=== PATIENT | male | born 1970 | race Two or more races ===

== ENCOUNTER 2024-03-04 22:28 | Inpatient (IN) | payer MEDICAID, OTHER ==
[~2024-03-04] VITALS: Ht 175.3 cm; Wt 111.6 kg
[2024-03-04 22:50] VITALS: PULSE 75; RESP 15; O2SAT 95
[2024-03-04 23:26] LABS: Urine Bacteria None Seen /hpf (None Seen)
[2024-03-04 23:31] LABS: Basophils # (auto) 0.1 10 ^3/uL (0-0.2); Basophils % (auto) 0.6 % (0.0-2.0); Eosinophils # (auto) 0.1 10 ^3/uL (0-0.8); Eosinophils % (auto) 0.5 % (0.0-7.0); Hematocrit 38.4 % (41.0-53.0); Hemoglobin 13.5 g/dL (13.5-17.5); Lymphocytes # (auto) 2.1 10 ^3/uL (0.4-5.4); Lymphocytes % (auto) 14.9 % (10.0-50.0); Mean Corpuscular Hemoglobin 30.9 pg (28.0-32.0); Mean Corpuscular Hgb Conc. 35.2 g/dL (32.0-36.0); Mean Corpuscular Volume 87.7 fL (80.0-100.0); Monocytes # (auto) 1.3 10 ^3/uL (0-1.3); Monocytes % (auto) 9.7 % (0.0-12.0); Neutrophils # (auto) 10.3 10 ^3/uL (1.6-8.6); Neutrophils % (auto) 74.3 % (37.0-80.0); Platelet Count (auto) 323 10^3/uL (140-450); Red Blood Cells 4.38 10^6/uL (4.5-5.90); Red Cell Distribution Width 13.4 % (11.8-14.3); White Blood Cell 13.8 10^3/uL (4.4-10.8)
[2024-03-04 23:34] LABS: Urine Blood 3+ /uL (Negative); Urine Budding Yeast OCCASIONAL /hpf (None Seen); Urine Clarity Clear (Clear); Urine Color Colorless (Yellow); Urine Mucus FEW (None Seen); Urine Protein, UAD TRACE (Negative); Urine Specific Gravity 1.016 (1.001-1.035); Urine Urobilinogen Normal (Negative); Urine WBC 19 /hpf (0 - 3)
[2024-03-04] MEDS: MORPHINE SULFATE 4 MG/ML SYR/VIAL IV ONE (23:42)
[2024-03-04] MEDS: ONDANSETRON HCL 4 MG/2 ML VIAL IV ONE (23:43)
[2024-03-04 23:47] LABS: Alanine Aminotransferase 38 U/L (7-40); Albumin 4.5 g/dL (3.2-4.8); Alkaline Phosphatase 69 U/L (46-116); Anion Gap 8 (5-15); Aspartate Aminotransferase 35 U/L (13-40); BUN/Creatinine Ratio 8.8 (10.0-20.0); Blood Urea Nitrogen 18 mg/dL (9-23); Calcium 9.5 mg/dL (8.7-10.4); Carbon Dioxide 22 mmol/L (20-30); Chloride 105 mmol/L (98-107); Glucose 113 mg/dL (74-106); Potassium 4.1 mmol/L (3.5-5.1); Sodium 135 mmol/L (136-145)
[2024-03-04 23:48] LABS: Bilirubin, Total 1.3 mg/dL (0.2-1.0); Total Protein 7.2 g/dL (5.7-8.2)
[2024-03-05] VITALS (7 sets, daily range): BP systolic 92–205; BP diastolic 54–126; PULSE 70–87; RESP 18–20; TEMP 97.8–100.1; O2SAT 93–100
[2024-03-05] MEDS: cefTRIAXone 1GM/50ML D5W 50 ML IV ONE (00:20)
[2024-03-05] MEDS ORDERED: MORPHINE SULFATE 4 MG/ML SYR/VIAL IV ONE (01:45)
[2024-03-05] MEDS: ONDANSETRON HCL 4 MG/2 ML VIAL IV ONE (01:50)
[2024-03-05] MEDS: HYDROmorphone HCL 2 MG/ML VL/or syr IV ONE (02:01)
[2024-03-05] MEDS ORDERED: DOCUSATE SOD 100 MG CAP PO PRN (03:15)
[2024-03-05] MEDS ORDERED: ACETAMINOPHEN 325 MG TAB PO PRN (03:15)
[2024-03-05] MEDS ORDERED: NITROGLYCERIN 0.4 MG SL TAB SL PRN (03:15)
[2024-03-05] MEDS ORDERED: MORPHINE SULFATE INJ 2 MG/ml SYRG IV PRN (03:15)
[2024-03-05] MEDS ORDERED: ONDANSETRON HCL 4 MG/2 ML VIAL IV PRN (03:15)
[2024-03-05] MEDS: SODIUM CHLORIDE 0.9% 1,000 ML IV SCH (03:41)
[2024-03-05] MEDS: MORPHINE SULFATE INJ 2 MG/ml SYRG IV PRN ×3 (05:00→18:44)
[2024-03-05] MEDS ORDERED: HYDR-4798 PO (06:40)
[2024-03-05] MEDS: ONDANSETRON HCL 4 MG/2 ML VIAL IV PRN (06:56)
[2024-03-05] MEDS: HYDROcodone-ACET 5/325MG TAB PO PRN (08:12)
[2024-03-05 09:18] LABS: Basophils # (auto) 0 10 ^3/uL (0-0.2); Basophils % (auto) 0.2 % (0.0-2.0); Eosinophils # (auto) 0 10 ^3/uL (0-0.8); Eosinophils % (auto) 0.2 % (0.0-7.0); Hematocrit 39.4 % (41.0-53.0); Hemoglobin 13.6 g/dL (13.5-17.5); Lymphocytes # (auto) 1.2 10 ^3/uL (0.4-5.4); Lymphocytes % (auto) 10.7 % (10.0-50.0); Mean Corpuscular Hemoglobin 30.4 pg (28.0-32.0); Mean Corpuscular Hgb Conc. 34.6 g/dL (32.0-36.0); Mean Corpuscular Volume 87.8 fL (80.0-100.0); Monocytes % (auto) 8.4 % (0.0-12.0); Neutrophils # (auto) 9.2 10 ^3/uL (1.6-8.6); Neutrophils % (auto) 80.5 % (37.0-80.0); Platelet Count (auto) 330 10^3/uL (140-450); Red Blood Cells 4.48 10^6/uL (4.5-5.90); Red Cell Distribution Width 13.3 % (11.8-14.3); White Blood Cell 11.4 10^3/uL (4.4-10.8)
[2024-03-05 09:27] LABS: Chloride 103 mmol/L (98-107); Sodium 134 mmol/L (136-145)
[2024-03-05 09:28] LABS: Anion Gap 4 (5-15); Carbon Dioxide 27 mmol/L (20-30)
[2024-03-05 09:29] LABS: Calcium 9.7 mg/dL (8.7-10.4)
[2024-03-05 09:33] LABS: BUN/Creatinine Ratio 8.7 (10.0-20.0); Blood Urea Nitrogen 18 mg/dL (9-23); Glucose 119 mg/dL (74-106)
[2024-03-05] MEDS: DOCUSATE SOD 100 MG CAP PO SCH (10:34)
[2024-03-05] MEDS: FUROSEMIDE 40 MG/4 ML VIAL ONE (12:09)
[2024-03-05] MEDS: FUROSEMIDE 40 MG/4 ML VIAL IV ONE (14:24)
[2024-03-05] MEDS: TAMSULOSIN HYDROCHLORIDE 0.4 MG CAP PO SCH (19:46)
[2024-03-05] MEDS: cefTRIAXone 1GM/50ML D5W 50 ML IV SCH (21:18)
[2024-03-05 23:06] LABS: INR 1.1 (0.9-1.15); Prothrombin Time 11.6 sec (9.3-11.8)
[2024-03-06 01:00] VITALS: BP 104/62; PULSE 75; RESP 18; TEMP 97.9; O2SAT 96
[2024-03-06 09:00] VITALS: BP 116/96; PULSE 78; RESP 20; TEMP 97.5; O2SAT 98
[2024-03-06 11:15] LABS: Basophils # (auto) 0 10 ^3/uL (0-0.2); Basophils % (auto) 0.3 % (0.0-2.0); Eosinophils # (auto) 0.1 10 ^3/uL (0-0.8); Eosinophils % (auto) 0.9 % (0.0-7.0); Hematocrit 38.4 % (41.0-53.0); Hemoglobin 13.4 g/dL (13.5-17.5); Lymphocytes % (auto) 22.8 % (10.0-50.0); Mean Corpuscular Hemoglobin 30.5 pg (28.0-32.0); Mean Corpuscular Hgb Conc. 34.8 g/dL (32.0-36.0); Mean Corpuscular Volume 87.7 fL (80.0-100.0); Monocytes # (auto) 0.8 10 ^3/uL (0-1.3); Neutrophils # (auto) 5.8 10 ^3/uL (1.6-8.6); Platelet Count (auto) 350 10^3/uL (140-450); Red Blood Cells 4.38 10^6/uL (4.5-5.90); Red Cell Distribution Width 13.5 % (11.8-14.3); White Blood Cell 8.7 10^3/uL (4.4-10.8)
[2024-03-06 11:30] LABS: Chloride 103 mmol/L (98-107); Potassium 4.3 mmol/L (3.5-5.1); Sodium 135 mmol/L (136-145)
[2024-03-06 11:31] LABS: Anion Gap 3 (5-15); Calcium 9.1 mg/dL (8.7-10.4); Carbon Dioxide 29 mmol/L (20-30)
[2024-03-06 11:36] LABS: BUN/Creatinine Ratio 8.5 (10.0-20.0); Blood Urea Nitrogen 32 mg/dL (9-23); Glucose 110 mg/dL (74-106)
[2024-03-06 12:35] VITALS: BP 112/67; PULSE 66; RESP 18; TEMP 98.6; O2SAT 96
[2024-03-06 16:55] VITALS: BP 88/51; PULSE 107; RESP 17; TEMP 98.5; O2SAT 92
[2024-03-06 20:00] VITALS: PULSE 102; RESP 18; O2SAT 98
[2024-03-06 21:00] VITALS: BP 104/71; PULSE 102; RESP 18; TEMP 97.9; O2SAT 96
[2024-03-07 01:00] VITALS: BP 106/68; PULSE 88; RESP 17; TEMP 98.1; O2SAT 98
[2024-03-07 05:00] VITALS: BP 143/84; PULSE 68; RESP 17; TEMP 97.9; O2SAT 98
[2024-03-07 07:52] LABS: Basophils # (auto) 0 10 ^3/uL (0-0.2); Basophils % (auto) 0.4 % (0.0-2.0); Eosinophils # (auto) 0.3 10 ^3/uL (0-0.8); Eosinophils % (auto) 3.3 % (0.0-7.0); Hematocrit 36.2 % (41.0-53.0); Hemoglobin 12.4 g/dL (13.5-17.5); Lymphocytes # (auto) 1.5 10 ^3/uL (0.4-5.4); Lymphocytes % (auto) 17.3 % (10.0-50.0); Mean Corpuscular Hemoglobin 30.5 pg (28.0-32.0); Mean Corpuscular Hgb Conc. 34.2 g/dL (32.0-36.0); Mean Corpuscular Volume 89.2 fL (80.0-100.0); Monocytes % (auto) 11.1 % (0.0-12.0); Neutrophils # (auto) 5.9 10 ^3/uL (1.6-8.6); Neutrophils % (auto) 67.9 % (37.0-80.0); Platelet Count (auto) 335 10^3/uL (140-450); Red Blood Cells 4.05 10^6/uL (4.5-5.90); White Blood Cell 8.7 10^3/uL (4.4-10.8)
[2024-03-07 08:01] LABS: Anion Gap 3 (5-15); Carbon Dioxide 27 mmol/L (20-30); Chloride 106 mmol/L (98-107); Potassium 3.9 mmol/L (3.5-5.1); Sodium 136 mmol/L (136-145)
[2024-03-07 08:03] LABS: Calcium 8.8 mg/dL (8.7-10.4)
[2024-03-07 08:07] LABS: Glucose 113 mg/dL (74-106)
[2024-03-07 08:08] LABS: BUN/Creatinine Ratio 11.9 (10.0-20.0); Blood Urea Nitrogen 38 mg/dL (9-23)
[2024-03-07 13:00] VITALS: BP 159/86; PULSE 77; RESP 18; TEMP 99; O2SAT 97
[2024-03-07 17:00] VITALS: BP 92/49; PULSE 70; RESP 18; TEMP 98.3; O2SAT 94
[2024-03-07 20:00] VITALS: PULSE 91; RESP 19; O2SAT 97
[2024-03-07 21:00] VITALS: BP 117/83; PULSE 91; RESP 19; TEMP 98; O2SAT 97
[2024-03-08] VITALS (12 sets, daily range): BP systolic 101–145; BP diastolic 59–80; PULSE 57–91; RESP 18–20; TEMP 98–99; O2SAT 94–100
[2024-03-08 07:02] LABS: Basophils # (auto) 0 10 ^3/uL (0-0.2); Basophils % (auto) 0.5 % (0.0-2.0); Eosinophils # (auto) 0.3 10 ^3/uL (0-0.8); Eosinophils % (auto) 3.5 % (0.0-7.0); Hemoglobin 12.2 g/dL (13.5-17.5); Lymphocytes # (auto) 2.2 10 ^3/uL (0.4-5.4); Lymphocytes % (auto) 25.6 % (10.0-50.0); Mean Corpuscular Hemoglobin 31.1 pg (28.0-32.0); Mean Corpuscular Hgb Conc. 34.8 g/dL (32.0-36.0); Mean Corpuscular Volume 89.5 fL (80.0-100.0); Monocytes # (auto) 0.9 10 ^3/uL (0-1.3); Monocytes % (auto) 10.5 % (0.0-12.0); Neutrophils # (auto) 5.3 10 ^3/uL (1.6-8.6); Neutrophils % (auto) 59.9 % (37.0-80.0); Platelet Count (auto) 346 10^3/uL (140-450); Red Blood Cells 3.92 10^6/uL (4.5-5.90); Red Cell Distribution Width 13.5 % (11.8-14.3); White Blood Cell 8.8 10^3/uL (4.4-10.8)
[2024-03-08 07:09] LABS: Anion Gap 4 (5-15); Carbon Dioxide 26 mmol/L (20-30); Chloride 107 mmol/L (98-107); Potassium 4.7 mmol/L (3.5-5.1); Sodium 137 mmol/L (136-145)
[2024-03-08 07:11] LABS: Calcium 8.9 mg/dL (8.7-10.4)
[2024-03-08 07:15] LABS: BUN/Creatinine Ratio 11.7 (10.0-20.0); Blood Urea Nitrogen 33 mg/dL (9-23); Glucose 111 mg/dL (74-106)
[2024-03-08] MEDS: ALBUTEROL SULF 2.5 MG/0.5ML(0.5%) NEB SOLN NEB PRN (16:50)
[2024-03-09] VITALS (12 sets, daily range): BP systolic 105–183; BP diastolic 60–97; PULSE 67–98; RESP 12–22; TEMP 97.9–98.6; O2SAT 96–100
[2024-03-09 06:58] LABS: Basophils # (auto) 0.1 10 ^3/uL (0-0.2); Basophils % (auto) 0.6 % (0.0-2.0); Eosinophils # (auto) 0.4 10 ^3/uL (0-0.8); Eosinophils % (auto) 4.4 % (0.0-7.0); Hematocrit 33.6 % (41.0-53.0); Hemoglobin 11.9 g/dL (13.5-17.5); Lymphocytes # (auto) 2.1 10 ^3/uL (0.4-5.4); Lymphocytes % (auto) 24.4 % (10.0-50.0); Mean Corpuscular Hemoglobin 31.7 pg (28.0-32.0); Mean Corpuscular Hgb Conc. 35.6 g/dL (32.0-36.0); Mean Corpuscular Volume 89.1 fL (80.0-100.0); Monocytes # (auto) 0.8 10 ^3/uL (0-1.3); Monocytes % (auto) 8.8 % (0.0-12.0); Neutrophils # (auto) 5.3 10 ^3/uL (1.6-8.6); Neutrophils % (auto) 61.8 % (37.0-80.0); Platelet Count (auto) 348 10^3/uL (140-450); Red Blood Cells 3.77 10^6/uL (4.5-5.90); Red Cell Distribution Width 13.2 % (11.8-14.3); White Blood Cell 8.5 10^3/uL (4.4-10.8)
[2024-03-09 07:15] LABS: Chloride 107 mmol/L (98-107); Potassium 4.8 mmol/L (3.5-5.1); Sodium 137 mmol/L (136-145)
[2024-03-09 07:16] LABS: Anion Gap 2 (5-15); Carbon Dioxide 28 mmol/L (20-30)
[2024-03-09 07:17] LABS: Calcium 9.6 mg/dL (8.7-10.4)
[2024-03-09 07:21] LABS: BUN/Creatinine Ratio 12.7 (10.0-20.0); Blood Urea Nitrogen 26 mg/dL (9-23); Glucose 109 mg/dL (74-106)
[2024-03-09] MEDS: MIDAZOLAM HCL 2MG/2ML 2ml VIAL (1mg/ml) ONE (11:12)
[2024-03-09] MEDS: LIDOCAINE 2%HCL (LOCAL ANESTH.) INJ 20ML MDV ONE (11:12)
[2024-03-09] MEDS: fentaNYL CITRATE 100 MCG/2 ML VL ONE (11:12)
[2024-03-09] MEDS: ceFAZolin 1GM/50ML 0 ML IV ONE (11:15)
[2024-03-09] MEDS: hydrALAZINE HCL 20 MG/ML VL ONE ×2 (11:33→12:13)
[2024-03-09] MEDS: cefTRIAXone 1GM/50ML D5W 50 ML IV ONE (11:36)
[2024-03-10] VITALS (9 sets, daily range): BP systolic 104–173; BP diastolic 70–92; PULSE 53–87; RESP 16–19; TEMP 98.4–99; O2SAT 91–99
[2024-03-10] MEDS ORDERED: MORPHINE SULFATE 4 MG/ML SYR/VIAL ONE (05:29)
[2024-03-10] MEDS ORDERED: CEFD300C2 PO (15:24)
[2024-03-10] MEDS ORDERED: TAMS-35 PO (15:24)
== END 2024-03-10 18:40 | disposition home health service (06) | DRG 463 ==
LOC: ER 22:28 → EDBD 22:28 → TELE-WESTW 03-05 03:22 → TELE 03-05 03:22 → ER 03-05 03:22 → TELE-WESTW 03-05 04:20 → WEST WING 03-05 16:35
PROVIDERS: ADMIT Nurse Practitioner Family; ATTEND Internal Medicine
PROC: 0T9430Z Drainage of Left Kidney Pelvis with Drainage Device, Percutaneous Approach (ICD-10-PCS; principal; 2024-03-09)
DX: N13.6 Pyonephrosis (principal); N17.0 Acute kidney failure with tubular necrosis; I10 Essential (primary) hypertension; K59.00 Constipation, unspecified; F17.210 Nicotine dependence, cigarettes, uncomplicated; Z85.51 Personal history of malignant neoplasm of bladder; Z79.899 Other long term (current) drug therapy; Z98.890 Other specified postprocedural states
CPT/HCPCS: 36415; 50432; 74176; 74425; 76775; 76942; 78707; 80048; 80053; 81001; 83605; 85025; 85610; 94640; 96365; 96375; 96376; 99152; G0378; J2250; J2405

== ENCOUNTER 2025-03-01 21:41 | Emergency (ER) | payer MEDICAID ==
[~2025-03-01] VITALS: Ht 182.9 cm; Wt 113.6 kg
[~2025-03-01 21:41] MED LIST: CEFD300C2 PO; HYDR-4798 PO; TAMS-35 PO
[2025-03-01] MEDS ORDERED: CALCIUM CHLOR(10%) 100MG/ML 10ML SYRINGE IV ONE (21:42)
[2025-03-01] MEDS ORDERED: NALOXONE HCL 0.4 MG/ML VIAL ONE (21:51)
[2025-03-01 21:57] VITALS: BP 0/0; PULSE 0; RESP 0; TEMP 99.9; O2SAT 0
--- NOTE | 2025-03-01 22:09 | ED.PDOC ---
CPR-HPI HPI Comments HPI: 54 year old male presents to the emergency department via EMS with a chief compliant of cardiac arrest. Per EMS, patient was found unresponsive on bathroom floor, unknown downtime, last seen well was about 20 minutes prior to downtime. Per EMS, family was concerned for possible overdose unknown white powder was found near the patient. S.O arrived about 4 minutes prior to EMS, compressions began. Patient was given 4 mg Narcan in route to ED as well as five rounds of epi, patient was asystole, pupils were fixed, dilated, IV was placed on RT AC, 500 mL IV fluids given. Upon ED arrival patient's blood sugar was 54, temperature was 99.9F rectal, cyanotic face, pupils, fixed, nonreactive. He was intubated with an 8.0 ETT, 24 cm at the lips. and son state patient was about four months sober, was not feeling well, went to the restroom, when they checked on him he was found on the floor. TOD was called 22:24. TOD was 22:24 Initial Vitals Temp: 99.9 F rectal BS: 54 Past Medical History: bladder cancer, HTN Past Surgical History: Denies Social History: unknown Medications: unknown Allergies: unknown HPI: Poor Historian. REVIEW OF SYSTEMS: Limited given the patient ALOC, unresponsive, CPR in progress. PHYSICAL EXAM: General: -CPR in progress, unresponsive, GCS 3 Patient is cyanotic, pupils are fixed and dilated. No corneal reflex. No gag reflex during intubation. Patient arrives in no C-collar. Head: normocephalic, Neck: supple, trachea is midline, no swelling. Throat: No gag reflex, noted food products in the posterior pharynx during i ntubation with GlideScope. Patient arrived from EMS with an oral adjunct present and bag-valve mask ventilation Eyes:, no erythema, no purulent discharge, no proptosis, no icterus. Pupils are dilated fixed nonreactive to light in her coronary reflex. Heart: Absolutely no cardiac activity. Asystole. Confirmed by both Doppler and bedside ultrasound of cardiac window. Lungs: Patient is not breathing on his own. Abdomen: non distended, soft, Neuro: Unresponsive, cardiac arrest Skin: no petechia, no purpura, non-pale, not jaundice. Patient's face is cyanotic and some mottling throughout the extremities is present. Lower extremities: --no - Pitting edema no deformity, no focal swelling, no calf TTP. Face: no apparent facial droop. ED COURSE: DISCLAIMER: This medical document was created using an electronic medical record system with voice recognition software and computerized dictation system. Although this document has been carefully reviewed, there might still be some phonetic and typographical errors. Occasional wrong-word or "sound-alike" substitutions may have occurred due to the inherent limitations of voice recognition software. These areas are purely typographical due to imperfections of the software programs and do not reflect any compromise in the patient's medical care. Please read the chart carefully and recognize, using context, where these substitutions have occurred. Chief Complaint: CPR Time Seen by MD: 21:42 Allergies: Coded Allergies: NO KNOWN ALLERGIES (Unverified , 03/04/24) Home Meds Active Scripts Tamsulosin Hcl (Flomax) 0.4 Mg Cap, 1 CAP PO DAILY for 14 Days, #14 CAP 11 Refills Prov:AZRA MORSE MD 03/10/24 Cefdinir (Cefdinir) 300 Mg Cap, 1 CAP PO BID for 7 Days, #14 CAP Prov:AZRA MORSE MD 03/10/24 Reported Medications Hydrocodone-Acetaminophen (Hydrocodone Bitartrate/AC 10-325 mg) 1 Tab Tab, 1 TAB PO BID, TAB 03/05/24 Information Source: Relative, Emergency Med Personnel Past Medical History PAST MEDICAL HISTORY: Cancer, HTN Surgical History: Denies all surgeries Family History Family History: Reviewed,noncontributory to illness Social History Smoker: Cigarettes Alcohol: Denies ETOH Use Drugs: Denies Drug Use Was a procedure done? Was a procedure done?: No Intubation Indication: Respiratory Insufficiency Prep: Preoxygenation Intubation Approach: Orotracheal Intubation size: cm (24) Informed consent obtained: Yes Risks/benefits/alt described: Yes Differential Dx CPR Differential Diagnosis: Cardiopulmonary arrest, Cardiac Tamponade, Cardiogenic shock, Dysrhythmia, Electrolyte disorder, Heart Block, Myocardial Infarction, Pneumothorax, Pulmonary Embolus, Respiratory Failure, Ruptured Aortic Aneurysm X-Ray, Labs, Meds, VS Vital Signs Date Time Temp Pulse Resp B/P (MAP) Pulse Ox O2 Delivery O2 Flow Rate FiO2 03/02/25 00:55 0 0 0 Ambu-Bag 0 03/01/25 21:57 99.9 0 0 0/0 0 99.9 Lab Test 03/01/25 22:00 Range/Units Urine Color Light-orange Yellow Urine Clarity Ex.turbid Clear Urine pH 6.0 5.0-9.0 Urine Specific [place] 1.023 1.001-1.035 Urine Protein 3+ H Negative Urine Ketones Trace Negative Urine Blood 2+ H Negative /uL Urine Nitrite Negative Negative Urine Bilirubin Negative Negative Urine Urobilinogen Normal Negative mg/dL Urine Leukocyte Esterase 3+ Negative /uL Urine RBC 56 0 - 3 /hpf Urine Microscopic WBC 421 H 0-3 /HPF Urine Squamous Epithelial Cells Mod <5 /hpf Urine Bacteria None seen None Seen /hpf Urine Mucus Few None Seen Urine Yeast (Budding) Loaded None Seen /hpf Urine Sperm Present None Seen /hpf Urine Glucose Normal Normal mg/dL Urine Opiates Screen Neg NEGATIVE Urine Fentanyl Screen Pos NEGATIVE Urine Barbiturates Screen Neg NEGATIVE Urine Phencyclidine Screen Neg NEGATIVE Urine Amphetamines Screen Neg NEGATIVE Urine Benzodiazepines Screen Neg NEGATIVE Urine Cocaine Screen Neg NEGATIVE Urine Cannabinoids Screen Neg NEGATIVE Time of 1ST Reevaluation: 22:12 Reevaluation 1ST: Unchanged Patient Education/Counseling: Pt Unresponsive Family Education/Counseling: Diagnosis, Treatment Comments Patient was evaluated immediately and CPR in resuscitation efforts were resumed. Please refer to the code sheet. Patient received 4 mg of Narcan prior to arrival in a total of 16 IV Narcan in our department. Patient could not bicarb, calcium chloride amp, Solu-Cortef 200 mg, dextrose replacement. 1 L normal saline bolus. Patient was intubated immediately upon arrival with GlideScope. Straight cath was obtained to kit urine for suspicion of drug use. We were told that there was some type of a white substance near the patient where he was found unresponsive unconscious. Patient has remote history of drug abuse and according to family he has been clean for four months. Bedside ultrasound was performed FAST cardiac window multiple sometimes. There was no cardiac activity. No apparent pericardial effusion. I spoke with the and the son. Patient continued to be in asystole throughout. Patient was pronounced after a total time of at least 1 hour in asystole including 20 minutes in the field. Departure 1 Departure Time of Disposition: 06:49 Impression: Primary Impression: Cardiopulmonary arrest Additional Impression: Mild fentanyl abuse Disposition: 20 Condition: Other Additional Instructions: pt . Discharged With: Other (Domonique) Critical Care Note Critical Care Time?: Yes (1 hr-critical care time only) Heart Score Heart Score: Heart Score Response (Comments) Value History N/A 0 EKG N/A 0 Age N/A 0 Risk Factors N/A 0 Troponin N/A 0 Total 0 I personally scribed for JEN CRUZ DO ([email or web address]) on 03/01/25 at 22:09. Electronically submitted by Vicenta Pressley ([email or web address]). I personally scribed for JEN CRUZ DO ([email or web address]) on 03/01/25 at 22:13. Electronically submitted by Vicenta Pressley ([email or web address]). I personally scribed for JEN CRUZ DO ([email or web address]) on 03/01/25 at 22:30. Electronically submitted by Vicenta Pressley ([email or web address]). I personally scribed for JEN CRUZ DO ([email or web address]) on 03/01/25 at 23:44. Electronically submitted by Vicenta Pressley ([email or web address]). JEN CRUZ DO Mar 01, 2025 22:09
[2025-03-01 22:17] LABS: Amphetamine Screen, Urine Neg (NEGATIVE); Barbiturate Scree,Urine Neg (NEGATIVE); Benzodiazephine Screen, Urine Neg (NEGATIVE)
[2025-03-01 22:18] LABS: Cannabinoid Screen, Urine Neg (NEGATIVE); Cocaine Screen, Urine Neg (NEGATIVE); Opiate Scree,Urine Neg (NEGATIVE); Phencyclidine Screen, Urine Neg (NEGATIVE)
[2025-03-01 22:23] LABS: Urine Budding Yeast LOADED /hpf (None Seen); Urine Protein, UAD 3+ (Negative)
[2025-03-01] MEDS ORDERED: HYDROCORTISONE SOD SUCC 100 MG/2ML INJ VIAL ONE (22:25)
--- NOTE | 2025-03-02 00:55 | RESUS ---
CODE BLUE ASSESSSMENT History of Events History of Events: 54-year-old Male found unresponsive in bathroom by family, unknown downtime. Family stated found white powder near patient, concerned for possible overdose. EMS arrived and found patient pulseless, pupils dilated and fixed. 20g right AC PIV placed by EMS. 4mg Narcan IV given en route, as well as 5 rounds of CPR, 5 Epi, patient was asystole for all cycles. EMS administered 500ml fluid bolus. Patient arrived to ER CPR in progress with autopulse. Patient asystole, BLS airway in place. Initial Information Date: Mar 01, 2025 Time: 21:41 Location of Arrest: In Field Arrest Witnessed: No CPR started initial time: 21:21 CPR started by whom: EMS Last seen well: unknown Pre-Hospital Care: ACLS Type of arrest: Cardiac, Respiratory, Adult, Unwitnessed Spontaneous Respirations: No Pulse Present: No Monitoring: ECG, Pulse Oximetry, Apnea, Telemetry Crash Cart Opened and Supplies: Yes Airway Ventilation Breathing at Onset: Assisted Oxygen Delivery Method: Ambu-Bag Time of first Assisted Ventila: 21:41 Artificial Ventilation: Bag/Mask Intubation Size: 8.0 cuffed Intubated by: Erasmo Colmenares DO Intubation Attempts: 1 Intubated orally: Yes Intubated Nasaly: No Tube secured at: 24 (cm @ lip) Cricoid pressure done: Yes CO2 indicator used: Yes Confirmation: Auscultation, Exhaled CO2 Suctioning (Oral/Tracheal): Yes Circulation Circulation #1: Time: 21:44 Pulse Rate (adult): 0 Blood Pressure Systolic: 0 Blood Pressure Diastolic: 0 Temperature (Fahrenheit): 99.9 (rectal) Circulation Comment: Asystole Circulation #2: Time: 21:46 Pulse Rate (adult): 0 Blood Pressure Systolic: 0 Blood Pressure Diastolic: 0 Circulation Comment: Asystole Circulation #3: Time: 21:48 Pulse Rate (adult): 0 Blood Pressure Systolic: 0 Blood Pressure Diastolic: 0 Circulation Comment: Asystole Circulation #4: Time: 21:50 Pulse Rate (adult): 0 Blood Pressure Systolic: 0 Blood Pressure Diastolic: 0 Circulation Comment: Asystole Circulation #5: Time: 21:52 Pulse Rate (adult): 0 Blood Pressure Systolic: 0 Blood Pressure Diastolic: 0 Circulation Comment: Asystole Circulation #6: Time: 21:55 Pulse Rate (adult): 0 Blood Pressure Systolic: 0 Blood Pressure Diastolic: 0 Circulation Comment: Asystole Circulation #7: Time: 21:57 Pulse Rate (adult): 0 Blood Pressure Systolic: 0 Blood Pressure Diastolic: 0 Circulation Comment: Asystole Circulation #8: Time: 21:59 Pulse Rate (adult): 0 Blood Pressure Systolic: 0 Blood Pressure Diastolic: 0 Circulation Comment: Asystole Circulation #9: Time: 22:01 Pulse Rate (adult): 0 Blood Pressure Systolic: 0 Blood Pressure Diastolic: 0 Circulation Comment: Asystole Circulation #10: Time: 22:04 Pulse Rate (adult): 0 Blood Pressure Systolic: 0 Blood Pressure Diastolic: 0 Circulation Comment: Asystole Circulation #11: Time: 22:06 Pulse Rate (adult): 0 Blood Pressure Systolic: 0 Blood Pressure Diastolic: 0 Circulation Comment: Asystole Circulation #12: Time: 22:08 Pulse Rate (adult): 0 Blood Pressure Systolic: 0 Blood Pressure Diastolic: 0 Circulation Comment: Asystole Circulation #13: Time: 22:10 Pulse Rate (adult): 0 Blood Pressure Systolic: 0 Blood Pressure Diastolic: 0 Circulation Comment: Asystole Circulation #14: Time: 22:13 Pulse Rate (adult): 0 Blood Pressure Systolic: 0 Blood Pressure Diastolic: 0 Circulation Comment: Asystole Circulation #15: Time: 22:15 Pulse Rate (adult): 0 Blood Pressure Systolic: 0 Blood Pressure Diastolic: 0 Circulation Comment: Asystole Circulation #16: Time: 22:17 Pulse Rate (adult): 0 Blood Pressure Systolic: 0 Blood Pressure Diastolic: 0 Circulation Comment: Asystole Circulation #17: Time: 22:19 Pulse Rate (adult): 0 Blood Pressure Systolic: 0 Blood Pressure Diastolic: 0 Circulation Comment: Asystole Circulation #18: Time: 22:22 Pulse Rate (adult): 0 Blood Pressure Systolic: 0 Blood Pressure Diastolic: 0 Circulation Comment: Asystole Circulation #19: Time: 22:24 Pulse Rate (adult): 0 Blood Pressure Systolic: 0 Blood Pressure Diastolic: 0 Circulation Comment: Asystole, Code ended. TOD pronounced by Erasmo Recinos DO Procedure - IV Procedure - IV #1: IV Side: Right IV Location: Antecubital IV Catheter Type: Peripheral IV IV Placed: Pre-Hospital IV Placed by EMS IV Gauge: 20 IV Line Care: Saline Flush Procedure - IV #2: IV start time: 21:41 IV Location: Antecubital IV Catheter Type: Peripheral IV IV Placed: In Hospital IV Placed by Chitra Patino RN IV Gauge: 20 IV Line Care: Saline Flush Medications & Response Medications and Responses #1: Medication Time: 21:43 ADULT Medications Given ADULT: Narcan 1 mg (4mg) Route of Administration: IV Medication Comment: 4mg Narcan IV per Dedra EKG Rhythm: Asystole Blood Pressure Systolic: 0 Blood Pressure Diastolic: 0 Respiratory Rate: 0 O2 Sat by Pulse Oximetry: 0 Defib. Joules: 0 EKG Rhythm: Asystole Medications and Responses #2: Medication Time: 21:44 ADULT Medications Given ADULT: Narcan 1 mg (4mg) Heart Rate: 0 EKG Rhythm: Asystole Blood Pressure Systolic: 0 Blood Pressure Diastolic: 0 Respiratory Rate: 0 O2 Sat by Pulse Oximetry: 0 EKG Rhythm: Asystole Medications and Responses #3: Medication Time: 21:44 ADULT Medications Given ADULT: Epinephrine 1 mg Route of Administration: IV Heart Rate: 0 EKG Rhythm: Asystole Blood Pressure Systolic: 0 Blood Pressure Diastolic: 0 Respiratory Rate: 0 O2 Sat by Pulse Oximetry: 0 EKG Rhythm: Asystole Medications and Responses #4: Medication Time: 21:45 ADULT Medications Given ADULT: D50 (amp) Route of Administration: IV Medication Comment: accucheck -54 Heart Rate: 0 EKG Rhythm: Asystole Blood Pressure Systolic: 0 Blood Pressure Diastolic: 0 Respiratory Rate: 0 O2 Sat by Pulse Oximetry: 0 EKG Rhythm: Asystole Medications and Responses #5: Medication Time: 21:47 ADULT Medications Given ADULT: Epinephrine 1 mg Route of Administration: IV Heart Rate: 0 EKG Rhythm: Asystole Blood Pressure Systolic: 0 Blood Pressure Diastolic: 0 Respiratory Rate: 0 O2 Sat by Pulse Oximetry: 0 EKG Rhythm: Asystole Medications and Responses #6: Medication Time: 21:48 ADULT Medications Given ADULT: Narcan 1 mg (8mg) Medication Comment: 8mg Narcan IV per Faraq DO Heart Rate: 0 EKG Rhythm: Asystole Blood Pressure Systolic: 0 Blood Pressure Diastolic: 0 Respiratory Rate: 0 O2 Sat by Pulse Oximetry: 0 EKG Rhythm: Asystole Medications and Responses #7: Medication Time: 21:50 ADULT Medications Given ADULT: Sodium Bacarbinate 50 meq Route of Administration: IV Heart Rate: 0 EKG Rhythm: Asystole Blood Pressure Systolic: 0 Blood Pressure Diastolic: 0 Respiratory Rate: 0 O2 Sat by Pulse Oximetry: 0 EKG Rhythm: Asystole Medications and Responses #8: Medication Time: 21:51 ADULT Medications Given ADULT: Epinephrine 1 mg Route of Administration: IV EKG Rhythm: Asystole Blood Pressure Systolic: 0 Blood Pressure Diastolic: 0 Respiratory Rate: 0 O2 Sat by Pulse Oximetry: 0 EKG Rhythm: Asystole Medications and Responses #9: Medication Time: 21:54 ADULT Medications Given ADULT: Epinephrine 1 mg Route of Administration: IV Heart Rate: 0 EKG Rhythm: Asystole Blood Pressure Systolic: 0 Blood Pressure Diastolic: 0 Respiratory Rate: 0 O2 Sat by Pulse Oximetry: 0 EKG Rhythm: Asystole Medications and Responses #10: Medication Time: 21:57 ADULT Medications Given ADULT: Epinephrine 1 mg Route of Administration: IV Heart Rate: 0 EKG Rhythm: Asystole Blood Pressure Systolic: 0 Blood Pressure Diastolic: 0 Respiratory Rate: 0 O2 Sat by Pulse Oximetry: 0 EKG Rhythm: Asystole Medications and Responses #11: Medication Time: 21:59 ADULT Medications Given ADULT: Sodium Bacarbinate 50 meq Route of Administration: IV Heart Rate: 0 EKG Rhythm: Asystole Blood Pressure Systolic: 0 Blood Pressure Diastolic: 0 Respiratory Rate: 0 O2 Sat by Pulse Oximetry: 0 EKG Rhythm: Asystole Medications and Responses #12: Medication Time: 22:00 ADULT Medications Given ADULT: Epinephrine 1 mg Route of Administration: IV Heart Rate: 0 EKG Rhythm: Asystole Blood Pressure Systolic: 0 Blood Pressure Diastolic: 0 Respiratory Rate: 0 O2 Sat by Pulse Oximetry: 0 EKG Rhythm: Asystole Medications and Responses #13: Medication Time: 22:02 ADULT Medications Given ADULT: Calcium Chloride 5 mL Route of Administration: IV Heart Rate: 0 EKG Rhythm: Asystole Blood Pressure Systolic: 0 Blood Pressure Diastolic: 0 Respiratory Rate: 0 O2 Sat by Pulse Oximetry: 0 EKG Rhythm: Asystole Medications and Responses #14: Medication Time: 22:04 ADULT Medications Given ADULT: Epinephrine 1 mg Route of Administration: IV Heart Rate: 0 EKG Rhythm: Asystole Blood Pressure Systolic: 0 Blood Pressure Diastolic: 0 Respiratory Rate: 0 O2 Sat by Pulse Oximetry: 0 EKG Rhythm: Asystole Medications and Responses #15: Medication Time: 22:08 ADULT Medications Given ADULT: Epinephrine 1 mg Route of Administration: IV Heart Rate: 0 EKG Rhythm: Asystole Blood Pressure Systolic: 0 Blood Pressure Diastolic: 0 Respiratory Rate: 0 O2 Sat by Pulse Oximetry: 0 EKG Rhythm: Asystole Medications and Responses #16: Medication Time: 22:11 ADULT Medications Given ADULT: Epinephrine 1 mg Route of Administration: IV Heart Rate: 0 EKG Rhythm: Asystole Blood Pressure Systolic: 0 Blood Pressure Diastolic: 0 Respiratory Rate: 0 O2 Sat by Pulse Oximetry: 0 EKG Rhythm: Asystole Medications and Responses #17: Medication Time: 22:15 ADULT Medications Given ADULT: Epinephrine 1 mg Route of Administration: IV Heart Rate: 0 EKG Rhythm: Asystole Blood Pressure Systolic: 0 Blood Pressure Diastolic: 0 Respiratory Rate: 0 O2 Sat by Pulse Oximetry: 0 EKG Rhythm: Asystole Procedure - Sahu Catheter Urinary Catheter Type/Location: Straight Urinary Catheter Size: 16 Urine Appearance: Sediment Urine Color: Dark Fe Comment: Fr Nurses Notes [place] Coma Scale Eye Opening: None (1) [place] Coma Scale Verbal: None (1) [place] Coma Scale Motor: None (1) [place] Total: 3 Pupil Reaction: Non Reactive Bedside Blood Glucose: 54 EKG Rhythm: Asystole Time Code Ended Time Code Ended: 22:24 Post Arrest Status: Outcome of code: Unsuccessful Patient pronounced by: Erasmo Corona DO Time patient pronounced: 22:24 Family notified: Yes Attending called: Yes Code Team Present: Erasmo Recinos DO, Bell Wilburn RN, Toyin Ambrose RN, Chitra Patino RN, Jeremias Bedoya RN, Alka Ramirez RT, Joyce Bedoya RT, Bean Wilburn RT, Angie Sierra RT, Renato Burton EMT, Hima EMT, Tonya Philip Mar 02, 2025 00:55
== END 2025-03-01 22:24 ==
LOC: ER 21:41 → EDBD 21:41 → ER 22:24
DX: I46.9 Cardiac arrest, cause unspecified (principal); Z79.899 Other long term (current) drug therapy
CPT/HCPCS: 31500; 80307; 81001; 82947; 92950; 99291; J0169; J1720; J2312; J7042; J7060